=== PATIENT | male | born 1945 | race Caucasian/White ===

== ENCOUNTER 2017-01-28 13:36 | Inpatient (IN) ==
--- NOTE | 2017-01-28 15:02 | General Surgery Consult Note ---
Assessment and Plan - Time spent with patient Time spent with patient: Less than 30 minutes (1) Pancreatic cancer Status: Acute Assessment and plan: Impression: 1. Pancreatic cancer 2. Chemotherapy needing venous access 3. History of congestive heart failure 4. History of DVT Plan: We will go ahead and set patient up for a Mediport in the morning. Current Visit: No History of Present Illness Chief complaint: Cancer needing venous access for chemotherapy History of present illness: Mr. Tate is a 71 year old male white who is undergoing chemotherapy at this time I believe for pancreatic cancer. At this point he is looking pretty good but has poor venous access and needs a good Mediport in for additional chemotherapy. Patient has been on Xarelto but has not taken it since Saturday has been on Plavix and has not taken that since . We will go ahead and set him up to get a Mediport in tomorrow so that they can continue chemotherapy. Home Medications Medication Instructions Recorded Confirmed Type metFORMIN [Glucophage] 500 mg PO BID W/MEALS 06/27/16 11/25/16 History Polyethylene Glycol Powder 17 gm PO DAILY PRN 07/07/16 11/25/16 History [Miralax] Ondansetron Tab [Zofran Tab] 8 mg PO Q6HR PRN 07/08/16 11/25/16 History fentaNYL 25 MCG/HR PATCH 1 patch TRANSDERM Q3DAY #10 patch 07/18/16 11/25/16 Rx [Duragesic 25 Patch] oxyCODONE IR [Roxicodone] 10 mg PO Q4H PRN #60 tablet 07/18/16 11/25/16 Rx Hydrocodone/Acetaminophen 1 each PO Q4-6H PRN 11/25/16 11/25/16 History [Hydrocodon-Acetaminoph 7.5-325] Magnesium Oxide 400 mg PO DAILY 11/25/16 11/25/16 History Albuterol/Ipratropium Neb [Duoneb] 3 ml RESP TX RT Q6H 30 Days 11/29/16 Rx Carvedilol [Coreg] 6.25 mg PO BID #60 tablet 11/29/16 Rx Clopidogrel [Plavix] 75 mg PO DAILY 30 Days 11/29/16 Rx Furosemide Tab [Lasix Tab] 40 mg PO BID #60 tablet 11/29/16 Rx Isosorbide Dinitrate [Isordil] 20 mg PO TID 30 Days 11/29/16 Rx Rivaroxaban [Xarelto] 15 mg PO DAILY 30 Days 11/29/16 Rx Allergies Allergy/AdvReac Type Severity Reaction Status Date / Time Iodinated Contrast Media - Allergy Unknown/Unable Verified 07/07/16 14:23 IV Dye to obtain latex Allergy RASH Verified 07/07/16 14:23 Penicillins Allergy Unknown/Unable Verified 07/07/16 14:23 to obtain lactose AdvReac Abdominal Verified 07/09/16 10:58 Pain Medical,Surgical,& Family Hx - Medical History Cardio: No history of: Cardiac Dysrhythmia Neurology: No history of: Brain Aneurysm, Seizures HEENT: History of: Ear Problem (Hearing Loss Both Ears-hearing aides), Eye Problem (cataracts), Dental Problems (Dentures) Endocrine: History of: Diabetes Mellitus (NIDDM) Respiratory: History of: COPD, Pneumonia (Pneum Vac Fall 2014), Respiratory Problems No history of: Lung Cancer (Being evaluated for small pulmonary nodules) Genitourinary: History of: Kidney Stones (45 years ago) No history of: Recurring Urinary Tract Infections Gastrointestinal: History of: Liver Problems (Multiple Liver Masses-06/28/16 Sched for Liver Bx RAD), Gastrointestinal Cancer (Being evaluated for Pancreatic CA-3cm mass near head of Pancreas), GI Problems (40# wt Loss in 4 months;RUQ Abd Pain) No history of: Esophageal Varices, Hematochezia, Hepatitis Other: History of: Cancer (Suspected Pancreatic Dr. Penn) No history of: Anesthesia Reactions - Surgical History Cardiac Surgeries: Patient Denies: Cardiac Catheterization, Cardiac Surgery, Carotid Endarterectomy Neurologic Surgeries: Patient denies: Brain Aneurysm HEENT Surgeries: Surgical HX of: Eye Surgery (Lens Implants Both Eyes) Patient denies: Carotid Endarterectomy Orthopedic Surgeries: Surgical HX of;: Spinal Surgery ([facility] 2008 Disc Repair) - Social History Smoking Status: Unknown if ever smoked Frequency of Alcohol Use: None Type of Drug Use: Unknown 12 point system: reviewed and no additional remarkable complaints except as stated Exam - Constitutional Vitals: Period Temp Pulse Resp BP Sys/Cobb Pulse Ox Last 24 Hr 97.8 F 107 20 215/96 94 General appearance: no acute distress - Head Head exam: Present: normal inspection - ENT ENT exam: Present: normal exam - Neck Neck exam: Present: normal inspection - Respiratory Respiratory exam: Present: clear to auscultation bilaterally, rales - Cardiovascular Cardiovascular exam: Present: RRR - GI/Abdominal GI/Abdominal exam: Present: hypoactive bowel sounds, soft. Absent: tenderness - Extremities Exam Extremities exam: Present: normal inspection - Neurological Exam Neurological exam: Present: alert, oriented X3, CN II-XII intact - Skin Skin exam: Present: normal color, warm, dry
[2017-01-28] MEDS ORDERED: PROCHLORPERAZINE 10 MG TABLET PO PRN (15:07)
[2017-01-28] MEDS ORDERED: POLYETHYLENE GLYCOL POWDER 17 GM PACK PO PRN (15:07)
[2017-01-28] MEDS ORDERED: ONDANSETRON 4 MG TABLET PO PRN (15:07)
--- NOTE | 2017-01-28 15:25 | EKG Report ---
Stationary ECG Study [facility] Test Date: 01/28/2017 3:23:32 PM Pat Name: BRYANT JACOBSEN Department: Room: 434 Gender: M Mucker [place]: : 1945 Requested by: Pop Joyner Order Number: [id number] Natalya MD: GISELA DIAMOND Intervals [place] Rate: 103 P: 57 MA: 128 QRS: 77 QRSD: 93 T: 2 QT: 336 QTc: 396 Interpretive Statements SINUS TACHYCARDIA MINIMAL ST DEPRESSION ABNORMAL RHYTHM ECG Electronically Signed On 01-29-17 12:21:21 CDT by GISELA DIAMOND [email or web address]
--- NOTE | 2017-01-28 15:39 | Cardiology Consult Note ---
Светлана Grimes April RN, am scribing for, and in the presence of, Guicho Wallace MD 15:39. Assessment and Plan - Time spent with patient Time spent with patient: Greater than 30 minutes (Due to assessment, planning, documentation, and medication review) (1) Congestive heart failure Status: Acute Assessment and plan: 01/28: We will begin evaluation for recurring congestive heart failure. We need to consider this as right heart failure primarily and be certain that we are not dealing with low intravascular volumes which we will make worse with intravenous diuresis. Will follow closely. Thank you for allowing us to see him in the hospital. Current Visit: Yes (2) COPD (chronic obstructive pulmonary disease) Status: Chronic Current Visit: Yes (3) DVT (deep venous thrombosis) Status: Chronic Current Visit: No (4) Diabetes Status: Chronic Current Visit: Yes (5) NSTEMI (non-ST elevated myocardial infarction) Status: Chronic Current Visit: No (6) Pancreatic cancer Status: Acute Current Visit: Yes History of Present Illness - Data of Consult Patient: known to practice within the last 3 years Consult date: 01/28/17 Requesting Physician: Dashawn Penn - Consult Narrative Reason for consult: CHF History of present illness: Mr. Tate is a 71 year old male who is routinely followed by Dr. Wallace with a history of non-ST elevation myocardial infarction, TIAs, pancreatic and liver cancer, NIDDM, COPD, and DVT (on Xarelto). Echo done in November of this year with ejection fraction of 50-55%. Dr. Penn follows him for his cancer and he is currently getting chemotherapy treatments. Surgical history includes back, hernia, bilateral cataracts, and tonsillectomy. Family history includes father with heart disease, hypertension, and cancer and mother with heart disease and hypertension. He does not currently smoke, he states he quit smoking about 15 years ago. He was seen in Dr. Penn's office today for chemotherapy and was sent to the hospital in anticipation of poor access. He has been holding his Plavix since of last week and his Xarelto since Saturday. He also tells me that he has been short of breath with edema since November, but that it is gotten much worse over the last several weeks. He does report having orthopnea. He does report having chest pain that is a pressure in the center of his chest that comes on when he gets extremely short of breath. It goes away when his breathing improves. He says the last episode he had of this was on Saturday. Currently he is seen resting in bed in no acute distress is at bedside. He states his breathing is pretty good right now, oxygen is in use via nasal biprong. O2 sat is 94%. He denies chest pain, palpitations, or dizziness. His heart rate seems regular to auscultation, but does seem tachycardic. His pulse rate on admission was 107, blood pressure was 215/96. Labs are pending at this time. I have discussed in detail the particulars of this case and I have examined the patient and reviewed the patient's chart both current and old. I was directly involved in the patient's evaluation and management and I completely agree with Adelaide Sotomayor RN regarding this patient's evaluation and treatment plan. This patient is well known to me with a history of DVT as well as a acute coronary syndrome and was started on Xarelto and Plavix which have been held for his Mediport to be placed in the morning. He complains of severe exertional fatigue and dyspnea at very short distances. We will plan on pushing his diuresis, and will check a BNP. We will also review a 2D echocardiogram to be certain there is no pericardial effusion or something else it is impeding right heart filling. It could easily be that the patient has nutritional issues or right-sided issues that are making him edematous without significant increase in filling pressures. We need to watch for hypotension on intravenous Lasix. CC: Dashawn Penn MD - Home Medications and Allergies Home Medications: Home Medications Medication Instructions Recorded Confirmed Type metFORMIN [Glucophage] 500 mg PO BID W/MEALS 06/27/16 01/28/17 History Polyethylene Glycol Powder 17 gm PO DAILY PRN 07/07/16 01/28/17 History [Miralax] Ondansetron Tab [Zofran Tab] 8 mg PO Q6HR PRN 07/08/16 01/28/17 History fentaNYL 25 MCG/HR PATCH 1 patch TRANSDERM Q3DAY #10 patch 07/18/16 01/28/17 Rx [Duragesic 25 Patch] Hydrocodone/Acetaminophen 1 each PO Q4-6H PRN 11/25/16 01/28/17 History [Hydrocodon-Acetaminoph 7.5-325] Magnesium Oxide 400 mg PO DAILY 11/25/16 01/28/17 History Albuterol/Ipratropium Neb [Duoneb] 3 ml RESP TX RT Q6H 30 Days 11/29/16 Rx Clopidogrel [Plavix] 75 mg PO DAILY 30 Days 11/29/16 01/28/17 Rx Furosemide Tab [Lasix Tab] 40 mg PO BID #60 tablet 11/29/16 01/28/17 Rx Isosorbide Dinitrate [Isordil] 20 mg PO TID 30 Days 11/29/16 01/28/17 Rx Rivaroxaban [Xarelto] 15 mg PO DAILY 30 Days 11/29/16 01/28/17 Rx Carvedilol [Coreg] 3.125 mg PO BID 01/28/17 01/28/17 History Cyanocobalamin (Vitamin B-12) 1,000 mcg PO DAILY 01/28/17 01/28/17 History [Vitamin B-12] Docusate Sodium Cap [Colace Cap] 100 mg PO DAILY 01/28/17 01/28/17 History Levothyroxine Tab [Synthroid Tab] 75 mcg PO DAILY@0700 01/28/17 01/28/17 History Megestrol Liquid [Megace Liquid] 400 mg PO DAILY 01/28/17 01/28/17 History Potassium Chloride [Klor-Con] 20 meq PO DAILY 01/28/17 01/28/17 History Prochlorperazine Tab [Compazine 10 mg PO Q4-6H PRN 01/28/17 01/28/17 History Tab] metOLazone [Metolazone] 2.5 mg PO DAILY 01/28/17 01/28/17 History oxyCODONE IR [Roxicodone] 1 - 2 tablet PO Q4H PRN 01/28/17 01/28/17 History Allergies/Adverse Reactions: Allergies Allergy/AdvReac Type Severity Reaction Status Date / Time Iodinated Contrast Media - Allergy Unknown/Unable Verified 07/07/16 14:23 IV Dye to obtain latex Allergy RASH Verified 07/07/16 14:23 Penicillins Allergy Unknown/Unable Verified 07/07/16 14:23 to obtain lactose AdvReac Abdominal Verified 07/09/16 10:58 Pain - Constitutional Constitutional: Present: as per HPI - EENT Eyes: Present: requires corrective lense. Absent: blurry vision Ears: Present: decreased hearing, other (Hearing aid). Absent: tinnitus Nose, mouth and throat: Absent: epistaxis, headache(s), neck pain - Cardiovascular Cardiovascular: Present: chest pain with activity (When severely short of breath ), dyspnea, dyspnea on exertion, edema, orthopnea. Absent: diaphoresis, radiating jaw, neck or arm pain, lightheadedness, palpitations - Respiratory Respiratory: Present: dyspnea, dyspnea on exertion. Absent: cough, hemoptysis, wheezing - Gastrointestinal Gastrointestinal: Absent: abdominal pain, constipation, diarrhea, hematemesis, hematochezia, melena, nausea, vomiting - Genitourinary Genitourinary: Absent: flank pain, hematuria - Musculoskeletal Musculoskeletal: Present: muscle weakness. Absent: limited range of motion - Neurological Neurological: Present: abnormal gait. Absent: abnormal speech, confusion, frequent falls, syncope - Psychiatric Psychiatric: Absent: anxiety, confusion, depression - Endocrine Endocrine: Present: fatigue Medical,Surgical,& Family Hx - Medical History Cardio: History of: MD (Non-ST elevation MD) Neurology: History of: TIA HEENT: History of: Ear Problem (Hearing Loss Both Ears-hearing aides), Eye Problem (cataracts), Dental Problems (Dentures) Endocrine: History of: Diabetes Mellitus (NIDDM) Respiratory: History of: COPD, Pneumonia (Pneum Vac Fall 2015) Genitourinary: History of: Kidney Stones (45 years ago) Gastrointestinal: History of: Liver Problems (Multiple Liver Masses), Gastrointestinal Cancer (Being evaluated for Pancreatic CA-3cm mass near head of Pancreas) Other: History of: Cancer (Pancreatic and liver) - Surgical History HEENT Surgeries: Surgical HX of: Eye Surgery (Bilateral cataracts), Tonsilectomy & Adenoidectomy Abdominal Surgeries: Surgical HX of: Hernia Repair Orthopedic Surgeries: Surgical HX of;: Spinal Surgery ([facility] 2008 Disc Repair) - Family History Family History: Reports;: Family Cancer (Father), Family Heart Disease (Mother and father), Family Hypertension (Mother and father) - Social History Smoking Status: Former smoker (States he quit about 15 years ago) Have you smoked in the last 12 months: No Frequency of Alcohol Use: None Type of Drug Use: None, Unknown Marital Status: Lives With:: Spouse Functional capacity: uses cane/walker Physical Examination Vital Signs Temp Pulse Resp BP Pulse Ox 97.8 F 107 H 20 215/96 94 L 01/28/17 14:24 01/28/17 14:24 01/28/17 14:24 01/28/17 14:24 01/28/17 14:24 General: Present: No Apparent Distress HEENT: Present: PERRL, Mucus Membranes Moist Neck: Present: Supple Neck, Midline Trachea, No JVD/HJR Cardiac: Present: Reg Rate and Rhythm, Tachycardia Lungs: Present: Normal Breath Sounds, Oxygen (Via nasal biprong), No Wheeze, Rales, Rhonchi Neuro: Absent: Essential Tremor Abdomen: Present: Soft, Active Bowel Sounds, Non-Tender Skin: Present: Clear Musculoskeletal: Present: No Pain, Normal Range of Motion Gait: Present: Poor Gait Extremities: Present: No Edema (1+ edema to bilateral lower extremities), Normal Upper Extr. Pulses, Normal Lower Extr. Pulses. Absent: Normal Gait Rodrigo Grimes Wesley, MD, personally performed the services described in this documentation, ascribed by Adelaide Sotomayor RN in my presence, and it is both accurate and complete [id number] .
--- NOTE | 2017-01-28 16:22 | Ultrasound Report ---
History is lower extremity edema and history of prior DVT. Grayscale, spectral Doppler, and color flow analysis performed and interpreted No evidence of echogenic noncompressible thrombus seen in the right common femoral, superficial femoral, saphenous, or popliteal veins The left common femoral and saphenous veins are patent There is occlusion of the mid to distal SFV and popliteal veins on the left in an area of prior DVT on the study of 07/14/2016 Impression: 1. Occlusion of the left SFV in an area of prior DVT. This could be chronic or related to residual or recurrent thrombus. Close clinical correlation requested PROCEDURE INTERPRETED AT [facility] DEPARTMENT OF RADIOLOGY Final Report Signed by: Dr. Joanie Micthell
[2017-01-28] MEDS: FUROSEMIDE 20 MG TABLET PO SCH (17:02)
[2017-01-28 17:03] LABS: Basophils % 0.2 % (0.0-0.8); Hematocrit 31.9 VOL% (42.0-52.0); Hemoglobin 10.2 GM/DL (14.0-18.0); Immature Granulocytes % 2.5 %; Immature Granulocytes Absolute 0.14 #; Lymphocytes # 0.4 10*3/uL (1.4-4.0); Mean Corpuscular Hemoglobin 32 PG (27-34); Mean Platelet Volume 9.6 FL (9.6-12.0); Monocytes # 0.3 10*3/uL (0.11-0.8); Monocytes % 5.1 % (1.7-12.7); Neutrophils # 4.6 10*3/uL (1.4-7.4); Neutrophils % 84.2 % (38.7-73.9); Platelet Count 297 T/CUMM (130-400); Red Blood Count 3.19 MC/CUMM (3.8-5.5); Red Cell Distribution Width 22.8 % (9.3-17.3); White Blood Count 5.5 T/CUMM (4-12)
[2017-01-28 17:15] LABS: INR 1.2; PT Patient Result 12.8 SECS; Partial Thromboplastin Time 32.8 SECS (0-40)
[2017-01-28] MEDS: ISOSORBIDE DINITRATE 20 MG TABLET PO SCH (17:23)
[2017-01-28] MEDS: CARVEDILOL 3.125 MG TABLET PO SCH (17:23)
[2017-01-28] MEDS: FUROSEMIDE 40 MG/4 ML VIAL IV SCH (17:24)
[2017-01-28 17:28] LABS: Albumin 2.4 G/DL (3.4-5.0); Bilirubin,Total 0.7 MG/DL (0.2-1.0); Calcium 8.1 MG/DL (8.5-10.1); Osmolality,Calculated 297.1 MOS/KG (273-304); Potassium 4.6 MMOL/L (3.5-5.1); Total Protein 5.4 G/DL (6.4-8.3)
[2017-01-28] MEDS: FLUOROURACIL IV SCH (18:02)
[2017-01-28] MEDS: SODIUM CHLORIDE 0.9% IV SCH (18:02)
--- NOTE | 2017-01-28 18:04 | XRay Report ---
Chest, 2 views History is preop Mediport placement to a cancer history Comparison 11/26/2016 The heart is mildly enlarged. Hilar contours grossly unchanged There are minimal curly B lines in the lung bases however prior diffuse pulmonary edema is markedly improved No consolidated infiltrate seen There is blunting of both costophrenic angles No pneumothorax seen Impression: Suspected minimal interstitial edema PROCEDURE INTERPRETED AT [facility] DEPARTMENT OF RADIOLOGY Final Report Signed by: Dr. Joanie Mitchell
[2017-01-28] MEDS: ALBUTEROL/IPRATROPIUM 3 ML NEB RESP TX SCH (18:45)
[2017-01-29] MEDS: ALBUTEROL/IPRATROPIUM 3 ML NEB RESP TX SCH ×4 (00:10→19:20)
[2017-01-29] MEDS: ISOSORBIDE DINITRATE 20 MG TABLET PO SCH ×4 (00:34→21:01)
[2017-01-29 04:50] LABS: Calcium 8.2 MG/DL (8.5-10.1); Osmolality,Calculated 289.4 MOS/KG (273-304); Potassium 4.2 MMOL/L (3.5-5.1)
[2017-01-29] MEDS: LEVOTHYROXINE 75 MCG TABLET PO SCH (06:36)
--- NOTE | 2017-01-29 08:58 | Oncology History&Physical ---
Assessment and Plan (1) Pancreatic cancer Status: Acute Assessment and plan: Continuing infusional fluorouracil chemotherapy which should complete 46 hour duration sometime tomorrow. Mediport placement today with plans to resume Xarelto and Plavix approximately 10 hours post surgery. Cautious diuresis. Current Visit: Yes History of Present Illness Chief complaint: Pancreatic cancer History of present illness: Mr. Tate is a 71 year old male Diagnosed around June 2016 with pancreatic cancer with liver metastasis. The patient has shown response to first-line therapy with gemcitabine and Abraxane. He has COPD clinically though he is not a current smoker. He also had a cardiac event a few months ago with elevated troponin which necessitated the addition of Plavix and nitrates. He also has right heart dysfunction from review of cardiology consultation. Over the last several weeks he has required escalating doses of furosemide and attempts to maintain ideal body weight. He is O2 dependent and does have a history of left leg deep vein thrombosis. He is on Xarelto in addition to Plavix. Ultrasound reviewed from yesterday in my opinion likely shows continued thrombus from prior event He is now started on second line FOLFOX chemotherapy due to rising tumor marker. He is admitted for chemo infusion as well as Mediport placement. His anticoagulation has been held. He was also seen yesterday by cardiology primarily for increasing dyspnea on exertion and peripheral edema Home Medications Medication Instructions Recorded Confirmed Type metFORMIN [Glucophage] 500 mg PO BID W/MEALS 06/27/16 01/28/17 History Polyethylene Glycol Powder 17 gm PO DAILY PRN 07/07/16 01/28/17 History [Miralax] Ondansetron Tab [Zofran Tab] 8 mg PO Q6HR PRN 07/08/16 01/28/17 History fentaNYL 25 MCG/HR PATCH 1 patch TRANSDERM Q3DAY #10 patch 07/18/16 01/28/17 Rx [Duragesic 25 Patch] Hydrocodone/Acetaminophen 1 each PO Q4-6H PRN 11/25/16 01/28/17 History [Hydrocodon-Acetaminoph 7.5-325] Magnesium Oxide 400 mg PO DAILY 11/25/16 01/28/17 History Albuterol/Ipratropium Neb [Duoneb] 3 ml RESP TX RT Q6H 30 Days 11/29/16 Rx Clopidogrel [Plavix] 75 mg PO DAILY 30 Days 11/29/16 01/28/17 Rx Furosemide Tab [Lasix Tab] 40 mg PO BID #60 tablet 11/29/16 01/28/17 Rx Isosorbide Dinitrate [Isordil] 20 mg PO TID 30 Days 11/29/16 01/28/17 Rx Rivaroxaban [Xarelto] 15 mg PO DAILY 30 Days 11/29/16 01/28/17 Rx Carvedilol [Coreg] 3.125 mg PO BID 01/28/17 01/28/17 History Cyanocobalamin (Vitamin B-12) 1,000 mcg PO DAILY 01/28/17 01/28/17 History [Vitamin B-12] Docusate Sodium Cap [Colace Cap] 100 mg PO DAILY 01/28/17 01/28/17 History Levothyroxine Tab [Synthroid Tab] 75 mcg PO DAILY@0700 01/28/17 01/28/17 History Megestrol Liquid [Megace Liquid] 400 mg PO DAILY 01/28/17 01/28/17 History Potassium Chloride [Klor-Con] 20 meq PO DAILY 01/28/17 01/28/17 History Prochlorperazine Tab [Compazine 10 mg PO Q4-6H PRN 01/28/17 01/28/17 History Tab] metOLazone [Metolazone] 2.5 mg PO DAILY 01/28/17 01/28/17 History oxyCODONE IR [Roxicodone] 1 - 2 tablet PO Q4H PRN 01/28/17 01/28/17 History Allergies Allergy/AdvReac Type Severity Reaction Status Date / Time Iodinated Contrast Media - Allergy Unknown/Unable Verified 07/07/16 14:23 IV Dye to obtain latex Allergy RASH Verified 07/07/16 14:23 Penicillins Allergy Unknown/Unable Verified 07/07/16 14:23 to obtain lactose AdvReac Abdominal Verified 07/09/16 10:58 Pain Medical,Surgical,& Family Hx - Medical History Cardio: History of: ID (Non-ST elevation ID) No history of: Cardiac Dysrhythmia Neurology: History of: TIA No history of: Brain Aneurysm, Seizures HEENT: History of: Ear Problem (Hearing Loss Both Ears-hearing aides), Eye Problem (cataracts), Dental Problems (Dentures) Endocrine: History of: Diabetes Mellitus (NIDDM) Respiratory: History of: COPD, Pneumonia (Pneum Vac Fall 2015), Respiratory Problems No history of: Lung Cancer (Being evaluated for small pulmonary nodules) Genitourinary: History of: Kidney Stones (45 years ago) No history of: Recurring Urinary Tract Infections Gastrointestinal: History of: Liver Problems (Multiple Liver Masses), Gastrointestinal Cancer (Being evaluated for Pancreatic CA-3cm mass near head of Pancreas), GI Problems (40# wt Loss in 4 months;RUQ Abd Pain) No history of: Esophageal Varices, Hematochezia, Hepatitis Other: History of: Cancer (Pancreatic and liver) No history of: Anesthesia Reactions - Surgical History Cardiac Surgeries: Patient Denies: Cardiac Catheterization, Cardiac Surgery, Carotid Endarterectomy Neurologic Surgeries: Patient denies: Brain Aneurysm HEENT Surgeries: Surgical HX of: Eye Surgery (Bilateral cataracts), Tonsilectomy & Adenoidectomy Patient denies: Carotid Endarterectomy Abdominal Surgeries: Surgical HX of: Hernia Repair Orthopedic Surgeries: Surgical HX of;: Spinal Surgery ([facility] 2007 Disc Repair) - Family History Family History: Reports;: Family Cancer (Father), Family Heart Disease (Mother and father), Family Hypertension (Mother and father) - Social History Smoking Status: Former smoker (States he quit about 15 years ago) Frequency of Alcohol Use: None Type of Drug Use: None, Unknown - Constitutional Constitutional: Present: fatigue, malaise, weight gain. Absent: fever(s), night sweats - EENT Ears: Present: decreased hearing. Absent: ear discharge, ear pain Nose, mouth and throat: Absent: neck mass, neck pain, odynophagia, sore throat - Cardiovascular Cardiovascular ROS IM: Present: edema, orthopnea. Absent: palpitations - Respiratory Respiratory: Absent: cough - Gastrointestinal Gastrointestinal: Absent: hematemesis, hematochezia - Genitourinary Genitourinary ROS male: Present: difficulty urinating, dysuria - Musculoskeletal Musculoskeletal ROS: Absent: back pain - Psychiatric Psychiatric General: Absent: panic attacks, suicidal ideation - Hematologic/Lymphatic Hematologic/Lymphatic: Absent: lymphadenopathy Exam - Constitutional Vitals: Period Temp Pulse Resp BP Sys/Cobb Pulse Ox Last 24 Hr 97.6 F-97.9 F 84-109 16-20 156-215/72-97 94-98 General appearance: no acute distress, no severe distress, no disheveled - Head Head Exam: Present: normocephalic, atraumatic - Eye Eye Exam: Present: EOMI. Absent: conjunctival injection, periorbital swelling, scleral icterus Pupils: Present: PERRL - ENT ENT exam: Present: normal external ear exam - Neck Neck exam: Present: normal inspection. Absent: lymphadenopathy, tenderness, thyromegaly - Respiratory Respiratory exam: Present: CTAB. Absent: accessory muscle use - Cardiovascular Cardiovascular exam: Present: RRR - GI/Abdominal GI/Abdominal exam: Absent: ascites, firm, guarding - Extremities Exam Extremities exam: Present: normal capillary refill, edema - Neurological Exam Neurological exam: Present: alert, oriented X3 - Psychiatric Psychiatric exam: Present: normal affect, normal mood - Skin Skin exam: Present: warm, dry Results - Labs CBC & BMP: 01/28/17 16:52 01/29/17 04:05 Quality Measures - VTE Contraindication to Pharmacological VTE Prophylaxis: High Risk of Bleeding
[2017-01-29 11:34] LABS: Apearance,Urine CLEAR (Clear); Bilirubin,Urine Negative (Negative); Blood, Urine Moderate mg/dL (Negative); Glucose,Urine (UA) Negative (Negative); Ketones,Urine Negative (Negative); Nitrite,Urine Negative (Negative); Protein,Urine 100 MG/DL; RBC,Urine 26 /HPF (0-4); Urine Color Yellow (Yellow); Urine Urobilinogen < 2.0 EU/DL (0.2-1.0); WBC,Urine 1 /HPF (0-6)
[2017-01-29] MEDS: CARVEDILOL 3.125 MG TABLET PO SCH ×2 (12:24→21:01)
[2017-01-29] MEDS ORDERED: CLINDAMYCIN INJ 900 MG in PREMIX 1 EACH IV ONE (12:30)
[2017-01-29] MEDS ORDERED: TISSUE ADHESIVE 1 EACH APPLICATOR TOP ONE (12:54)
[2017-01-29] MEDS ORDERED: BUPIVACAINE MPF 0.25% /EPI 30 ML VIAL ONE (12:54)
[2017-01-29] MEDS ORDERED: ceFAZolin 1,000 MG VIAL ONE (12:54)
[2017-01-29] MEDS ORDERED: LIDOCAINE 2% 5 ML VIAL ONE (13:04)
[2017-01-29] MEDS ORDERED: ETOMIDATE 20 MG/10 ML VIAL IV ONE (13:04)
--- NOTE | 2017-01-29 13:14 | ECHO Report ---
Shayne Tate Exam Date: 01/29/2017 09:07 Referring Physician: Technologist: Jazmine Villeda Age: 71 Ht (in): 68 Wt (lb): 197 Gender: M Exam Location: [facility] Echo Indications: CHF, COPD, DVT, NIDDM, NSTEMI, pancreatic CA, orthopnea, SOB, edema BP: 186 / 84 HR: 87 Rhythm: NSR Technical Quality: Good IMPRESSIONS Normal left ventricular cavity size. Mild concentric left ventricular hypertrophy. Left ventricular ejection fraction is estimated at 50-55 %. Normal right ventricular size. Normal right atrial size. Normal left atrial size. Mild mitral valve sclerosis. Mild mitral valve regurgitation. Mild aortic valve sclerosis. Morphologically normal tricuspid valve. Moderate tricuspid valve regurgitation. Tricuspid regurgitation velocities suggest a PAP of 44.6 mmHg + RAP. Morphologically normal pulmonic valve. No pericardial effusion. Normal size aortic root and proximal ascending aorta. MEASUREMENTS (Male / Female) Normal Values 2D ECHO LV Diastolic Diameter PLAX 3.6 cm 4.2 - 5.9 / 3.9 - 5.3 cm LV Systolic Diameter PLAX 2.5 cm LV Fractional Shortening PLAX 29.9 % IVS Diastolic Thickness 1.4 cm 0.6 - 1.0 / 0.6 - 0.9 cm LVPW Diastolic Thickness 1.6 cm 0.6 - 1.0 / 0.6 - 0.9 cm RV Internal Dim ED PLAX 2.4 cm Aortic Root Diameter 2.4 cm LA Systolic Diameter LX 3.9 cm 3.0 - 4.0 / 2.7 - 3.8 cm DOPPLER TR Peak Velocity 334.0 cm/s TR Peak Gradient 44.6 mmHg FINDINGS Left Ventricle Normal left ventricular cavity size. Mild concentric left ventricular hypertrophy.left ventricular ejection fraction is estimated at 50-55 %. Right Ventricle Normal right ventricular size. Right Atrium Normal right atrial size. Left Atrium Normal left atrial size. Mitral Valve Mild mitral valve sclerosis. Mild mitral valve regurgitation. Aortic Valve Mild aortic valve sclerosis. Tricuspid Valve Morphologically normal tricuspid valve. Moderate tricuspid valve regurgitation. Tricuspid regurgitation velocities suggest a PAP of 44.6 mmHg + RAP. Pulmonic Valve Morphologically normal pulmonic valve. Pericardium No pericardial effusion. Aorta Normal size aortic root and proximal ascending aorta. Guicho Wallace MD (Electronically Signed) Final Date: 29 January 2017 13:14
[2017-01-29] MEDS ORDERED: ACETAMINOPHEN 325 MG TABLET PO PRN (14:24)
--- NOTE | 2017-01-29 14:27 | Cardiology Progress Note ---
I, Adelaide Sotomayor RN, am scribing for, and in the presence of, Guicho Wallace MD 14:25. Assessment and Plan (1) Congestive heart failure Status: Acute Assessment and plan: This is heart failure with preserved ejection fraction. I suspect that this is multifactorial related to the patient's multiple comorbidities. We will continue diuresis and attempts at offloading. He does need to be resumed on his Xarelto as well as his Plavix when is feasible. Current Visit: Yes (2) COPD (chronic obstructive pulmonary disease) Status: Chronic Current Visit: Yes (3) DVT (deep venous thrombosis) Status: Chronic Assessment and plan: Repeat venous ultrasound did show some occlusion of prior DVT site which likely is chronic. We will continue Xarelto regardless. Current Visit: No (4) Diabetes Status: Chronic Current Visit: Yes (5) NSTEMI (non-ST elevated myocardial infarction) Status: Chronic Current Visit: No (6) Pancreatic cancer Status: Acute Current Visit: Yes Cardiology - PN: Subj Interval history: Mr. Tate is seen resting in bed in no acute distress with at bedside. He is scheduled for Mediport placement today. He denies chest pain, palpitations, or dizziness. Oxygen is in use via nasal biprong, he tells me he is breathing about as well as he normally does. O2 sat 96%. Heart rates were in the 80s during the night. BNP checked this morning was 706. Venous Doppler shows occlusion of the left SFV in the area of prior DVT, this could be chronic and related to previous DVT. Patient is to remain on Xarelto. Echocardiography demonstrates normal LV function with normal right sided dimensions and I feel that a significant amount of his edema is related to peripheral issues including his history of DVT. He is overall currently stable and has diuresed without significant hypotension and we will continue this. Nutrition may be part of the etiology as well. He has BNP elevations might well be multifactorial as well. I have discussed in detail the particulars of this case and I have examined the patient and reviewed the patient's chart both current and old. I was directly involved in the patient's evaluation and management and I completely agree with Adelaide Sotomayor RN regarding this patient's evaluation and treatment plan. Exam (Progress Note) - Constitutional Vitals: Period Temp Pulse Resp BP Sys/Cobb Pulse Ox Last 24 Hr 97.6 F-97.9 F 84-109 16-20 156-215/72-97 94-98 General appearance: no acute distress - Head Head exam: Absent: abrasion, hematoma - Eye Eye exam: Absent: periorbital swelling, laceration to eyelids - Neck Neck exam: Absent: tenderness - Respiratory Respiratory exam: Present: clear to auscultation bilaterally, other (Oxygen via nasal biprong). Absent: accessory muscle use, chest wall tenderness - Cardiovascular Cardiovascular exam: Present: regular rate and rhythm - GI/Abdominal GI/Abdominal exam: Present: hypoactive bowel sounds, soft. Absent: tenderness - Extremities Exam Extremities exam: Present: edema (1+ bilateral lower extremities) - Neurological Exam Neurological exam: Present: alert, oriented X3 - Psychiatric Psychiatric exam: Present: normal affect, normal mood - Skin Skin exam: Present: warm, dry Result/EKG - Labs CBC & BMP: 01/28/17 16:52 01/29/17 04:05 Lab Results: I have reviewed the past 24 hour labs Labs: Laboratory Results - last 24 hr 01/28/17 01/28/17 01/28/17 16:52 16:52 16:52 WBC 5.5 RBC 3.19 L Hgb 10.2 L Hct 31.9 L MCV 100.0 MCH 32 MCHC 32.0 RDW 22.8 H Plt Count 297 MPV 9.6 Neut % (Auto) 84.2 H Lymph % (Auto) 8.0 L Pender % (Auto) 5.1 Eos % (Auto) 0.0 Baso % (Auto) 0.2 Neut # (Auto) 4.6 Lymph # (Auto) 0.4 L P[place] # (Auto) 0.3 Eos # (Auto) 0.0 Baso # (Auto) 0.0 Immature Gran % 2.5 Nucleated RBC % 0.0 Immature Gran # 0.14 Nucleated RBCs # 0.00 INR PT Patient/Control Mix Circ Anticoag PTT Sodium 142 Potassium 4.6 Chloride 101 Carbon Dioxide 28 Anion Gap 17.6 H BUN 39 H Creatinine 2.00 H GFR Calculation 38 BUN/Creatinine Ratio 19.00 Glucose 208 H Calculated Osmolality 297.1 Uric Acid Calcium 8.1 L Magnesium Total Bilirubin 0.70 AST 42 H ALT 21 Alkaline Phosphatase 110 Lactate Dehydrogenase 455 H B-Natriuretic Peptide Total Protein 5.4 L Albumin 2.4 L Globulin 3.0 Albumin/Globulin Ratio 0.8 L 01/28/17 01/28/17 01/28/17 16:52 16:52 16:52 WBC RBC Hgb Hct MCV MCH MCHC RDW Plt Count MPV Neut % (Auto) Lymph % (Auto) Pender % (Auto) Eos % (Auto) Baso % (Auto) Neut # (Auto) Lymph # (Auto) Pender # (Auto) Eos # (Auto) Baso # (Auto) Immature Gran % Nucleated RBC % Immature Gran # Nucleated RBCs # INR 1.2 PT Patient/Control Mix 12.8 D Circ Anticoag PTT 32.8 Sodium Potassium Chloride Carbon Dioxide Anion Gap BUN Creatinine GFR Calculation BUN/Creatinine Ratio Glucose Calculated Osmolality Uric Acid 10.2 H Calcium Magnesium 1.9 Total Bilirubin AST ALT Alkaline Phosphatase Lactate Dehydrogenase B-Natriuretic Peptide Total Protein Albumin Globulin Albumin/Globulin Ratio 01/29/17 01/29/17 04:05 04:05 WBC RBC Hgb Hct MCV MCH MCHC RDW Plt Count MPV Neut % (Auto) Lymph % (Auto) Pender % (Auto) Eos % (Auto) Baso % (Auto) Neut # (Auto) Lymph # (Auto) Pender # (Auto) Eos # (Auto) Baso # (Auto) Immature Gran % Nucleated RBC % Immature Gran # Nucleated RBCs # INR PT Patient/Control Mix Circ Anticoag PTT Sodium 140 Potassium 4.2 Chloride 102 Carbon Dioxide 27 Anion Gap 15.2 H BUN 43 H Creatinine 1.80 H GFR Calculation 43 BUN/Creatinine Ratio 23.00 H Glucose 97 Calculated Osmolality 289.4 Uric Acid Calcium 8.2 L Magnesium Total Bilirubin AST ALT Alkaline Phosphatase Lactate Dehydrogenase B-Natriuretic Peptide 706 H Total Protein Albumin Globulin Albumin/Globulin Ratio - Diagnostic Findings Procedure: Ultrasound: report reviewed by me - EKG EKG results: interpreted by me EKG shows: sinus rhythm Quality Measures - VTE Contraindication to Pharmacological VTE Prophylaxis: High Risk of Bleeding Rodrigo Grimes Wesley, MD, personally performed the services described in this documentation, ascribed by Adelaide Sotomayor RN in my presence, and it is both accurate and complete [id number] .
--- NOTE | 2017-01-29 14:36 | Anesthesia ---
Anesthesia Post OP - Post Ansesthetic Evaluation Patient seen in post op: Yes Resp: within normal limits CV: within normal limits Mental: within normal limits Temp: within normal limits [id number]: within normal limits Nausea and Vomiting: within normal limits Pain: within normal limits
[2017-01-29] MEDS ORDERED: fentaNYL 100 MCG/2 ML VIAL ONE (14:39)
[2017-01-29] MEDS ORDERED: MIDAZOLAM 2 MG/2 ML VIAL ONE (14:40)
--- NOTE | 2017-01-29 14:40 | Operative Note ---
Date of procedure: 01/29/17 Pre-op diagnosis: Pancreatic cancer for chemotherapy Post-op diagnosis: same Procedure: Operative note: Preoperative diagnosis: Pancreatic cancer needing venous access chemotherapy Postoperative diagnosis: Same Procedure: Insertion of PowerPort left cephalic vein Surgeon Dr. Joyner Anesthesia was managed anesthetic care with local Brief history: 71-year-old white male with pancreatic cancer who needs venous access now for continued chemotherapy. He is also had a history of some cardiac disease as well as DVT and has been on Xarelto and Plavix at which point they have been stopped the appropriate amount of time for the surgery. Procedure: Patient in the supine position prepped and draped in a sterile fashion timeout and antibiotics completed approaches area of the left chest wall area the infraclavicular region of the left upper shoulder region. I infiltrated with local anesthetic there and then made an incision at the level of the deltopectoral groove. At that point I made an incision through the skin subtenons tissue carefully dissected dissected down to identify the pectoralis major muscle. There was a little artery going over the top of the S that I had to clip with clips and divided. As I carefully dissected into the deltopectoral groove identified the vein. I then isolated it proximally and tied it with a 2-0 Vicryl time. I then isolated it distally with a 2-0 Vicryl but did not tie this. Patient was then placed in Trendelenburg position at which point we made a small venotomy incision. I then carefully inserted the catheter to the vein and we brought the C arm up to place it in the right atrium superior vena caval area. Once it was in good position we aspirated and irrigated and aspirated and irrigated easily. At that point I tied the 2-0 Vicryl tie down the secured in the vein and placed another one distal to that to tie it down and secure it further. In place clips over the openings of the vein. With that completed then we then went ahead and created a pocket using blunt dissection inferior to the incision on top of the pectoralis major muscle. Once that was completed then we cut off the excess of the catheter and placed it onto the reservoir and put the locking device in position. We then aspirated and irrigated through the reservoir were then aspirated and irrigated easily. With that completed then I sutured the reservoir into the pocket with interrupted 2-0 Vicryl sutures and the distal part on either side to keep it from rotating. Once I was in good position there we then washed we brought the C arm back up after we washed with Ancef solution. We then injected a good position good placement and good smooth course. With that completed then we then closed the subtenons tissue running 4-0 Vicryl closed the skin running 4-0 Monocryl with Dermabond applied there. We went ahead and accessed aspirated and irrigated through the access device which has accessed irrigated easily.. With that in position then we put a dressing on took the patient recovery room. Estimated blood loss 10 cc Sponge count correct 2 Drains none Complications none Condition stable satisfactory Anesthesia: MAC, local (0.25% Marcaine with epinephrine mixed [id number] 1% Xylocaine plain) Surgeon / Physician: Pop Joyner Estimated blood loss: other (10 cc) Specimens: none sent Condition: stable Disposition: floor Results - Labs CBC & BMP: 01/28/17 16:52 01/29/17 04:05 Discharge Plan - Discharge Medications No Action metFORMIN [Glucophage] 500 mg PO BID W/MEALS Polyethylene Glycol Powder [Miralax] 17 gm PO DAILY PRN PRN Reason: Constipation Ondansetron Tab [Zofran Tab] 8 mg PO Q6HR PRN PRN Reason: Nausea/Vomiting fentaNYL 25 MCG/HR PATCH [Duragesic 25 Patch] 1 patch TRANSDERM Q3DAY #10 patch Hydrocodone/Acetaminophen [Hydrocodon-Acetaminoph 7.5-325] 1 each PO Q4-6H PRN PRN Reason: Pain Magnesium Oxide 400 mg PO DAILY Isosorbide Dinitrate [Isordil] 20 mg PO TID 30 Days Rivaroxaban [Xarelto] 15 mg PO DAILY 30 Days Cyanocobalamin (Vitamin B-12) [Vitamin B-12] 1,000 mcg PO DAILY Docusate Sodium Cap [Colace Cap] 100 mg PO DAILY oxyCODONE IR [Roxicodone] 1 - 2 tablet PO Q4H PRN PRN Reason: Pain Severe (8-10) Prochlorperazine Tab [Compazine Tab] 10 mg PO Q4-6H PRN PRN Reason: Nausea Carvedilol [Coreg] 3.125 mg PO BID Levothyroxine Tab [Synthroid Tab] 75 mcg PO DAILY@0700 Potassium Chloride [Klor-Con] 20 meq PO DAILY Albuterol/Ipratropium Neb [Duoneb] 3 ml RESP TX RT Q6H 30 Days Clopidogrel [Plavix] 75 mg PO DAILY 30 Days Furosemide Tab [Lasix Tab] 40 mg PO BID #60 tablet Megestrol Liquid [Megace Liquid] 400 mg PO DAILY metOLazone [Metolazone] 2.5 mg PO DAILY - Follow Up or Referral - Forms/Instructions
--- NOTE | 2017-01-29 14:56 | XRay Report ---
XR chest 1V portable Indication: Mediport placement. Chest one view: Comparison yesterday. There is a left-sided Mediport catheter now present. Tip is at the RA-SVC junction. Heart size is normal. Increased reticular opacification of both lung ardon noted diffusely with increased hazy obscuration of the lung bases. No pneumothorax shown. Impression: 1. New Mediport catheter. No pneumothorax. 2. Suspect mild fluid overload. PROCEDURE INTERPRETED AT [facility] DEPARTMENT OF RADIOLOGY Final Report Signed by: Dashawn Byrnes M.D.
[2017-01-29] MEDS: FUROSEMIDE 20 MG TABLET PO SCH ×2 (16:18→17:23)
[2017-01-29] MEDS: DOCUSATE SODIUM 100 MG CAPSULE PO SCH (16:18)
[2017-01-29] MEDS: MAGNESIUM OXIDE 400 MG TABLET PO SCH (16:18)
[2017-01-29] MEDS: CYANOCOBALAMIN 500 MCG TABLET PO SCH (16:19)
[2017-01-29] MEDS: POTASSIUM CHLORIDE 20 MEQ PACK PO SCH (16:19)
[2017-01-29] MEDS: metOLazone 2.5 MG TABLET PO SCH (16:19)
[2017-01-29] MEDS: MEGESTROL 400 MG/10 ML UDCUP PO SCH (16:19)
[2017-01-29] MEDS: DEXTROSE 5% NACL 0.45% 1,000 ML IV SCH (16:20)
[2017-01-29] MEDS: FUROSEMIDE 40 MG/4 ML VIAL IV SCH (17:23)
[2017-01-29] MEDS: CLINDAMYCIN INJ 900 MG in PREMIX 1 EACH IV SCH (21:01)
[2017-01-30] MEDS: ALBUTEROL/IPRATROPIUM 3 ML NEB RESP TX SCH ×4 (00:10→20:08)
[2017-01-30] MEDS: SODIUM CHLORIDE 0.9% IV SCH (01:01)
[2017-01-30] MEDS: FLUOROURACIL IV SCH (01:01)
[2017-01-30] MEDS: CLINDAMYCIN INJ 900 MG in PREMIX 1 EACH IV SCH (05:37)
[2017-01-30 06:14] LABS: Eosinophils # 0.1 10*3/uL (0.0-0.87); Eosinophils % 0.9 % (0.00-10.9); Immature Granulocytes % 0.8 %; Immature Granulocytes Absolute 0.06 #; Mean Corpuscular HGB Conc 32.3 GM/DL (32-36); Mean Corpuscular Hemoglobin 32 PG (27-34); Mean Corpuscular Volume 99.2 FL (87-102); Mean Platelet Volume 9.8 FL (9.6-12.0); Red Cell Distribution Width 22.8 % (9.3-17.3)
[2017-01-30] MEDS: LEVOTHYROXINE 75 MCG TABLET PO SCH (06:16)
[2017-01-30 06:20] LABS: Basophils % 0.3 % (0.0-0.8); Hematocrit 25.7 VOL% (42.0-52.0); Hemoglobin 8.3 GM/DL (14.0-18.0); Lymphocytes # 1.1 10*3/uL (1.4-4.0); Lymphocytes % 14.3 % (21.2-54.2); Monocytes # 1.3 10*3/uL (0.11-0.8); Monocytes % 16.7 % (1.7-12.7); Neutrophils # 5.1 10*3/uL (1.4-7.4); Platelet Count 307 T/CUMM (130-400); Red Blood Count 2.59 MC/CUMM (3.8-5.5); White Blood Count 7.6 T/CUMM (4-12)
[2017-01-30 06:44] LABS: Albumin 2.2 G/DL (3.4-5.0); Bilirubin,Total 0.7 MG/DL (0.2-1.0); Calcium 7.9 MG/DL (8.5-10.1); Magnesium 1.9 MG/DL (1.8-2.4); Osmolality,Calculated 291.1 MOS/KG (273-304); Potassium 4.3 MMOL/L (3.5-5.1); Total Protein 4.4 G/DL (6.4-8.3)
[2017-01-30 06:45] LABS: Eosinophils 1 % (0-10); Hypochromasia Slight; Lymphocytes 16 % (20-55); Macrocytosis 1+; Platelet Estimate Normal; Segmented Neutrophils 73 % (50-85); Total Cells Counted 100
[2017-01-30] MEDS: FUROSEMIDE 20 MG TABLET PO SCH (08:15)
[2017-01-30] MEDS: DEXTROSE 5% NACL 0.45% 1,000 ML IV SCH (08:15)
[2017-01-30] MEDS: CARVEDILOL 3.125 MG TABLET PO SCH ×2 (09:16→20:55)
[2017-01-30] MEDS: PANTOPRAZOLE 40 MG TABLET PO SCH (09:16)
[2017-01-30] MEDS: metOLazone 2.5 MG TABLET PO SCH (09:16)
[2017-01-30] MEDS: MAGNESIUM OXIDE 400 MG TABLET PO SCH (09:17)
[2017-01-30] MEDS: ISOSORBIDE DINITRATE 20 MG TABLET PO SCH ×3 (09:17→20:55)
[2017-01-30] MEDS: CYANOCOBALAMIN 500 MCG TABLET PO SCH (09:17)
[2017-01-30] MEDS: MEGESTROL 400 MG/10 ML UDCUP PO SCH (09:18)
[2017-01-30] MEDS: FUROSEMIDE 40 MG/4 ML VIAL IV SCH (09:19)
[2017-01-30] MEDS: DOCUSATE SODIUM 100 MG CAPSULE PO SCH (09:23)
[2017-01-30] MEDS: POTASSIUM CHLORIDE 20 MEQ PACK PO SCH (09:24)
[2017-01-30] MEDS: CLOPIDOGREL 75 MG TABLET PO SCH (09:28)
[2017-01-30] MEDS: RIVAROXABAN 15 MG TABLET PO SCH (09:28)
[2017-01-30] MEDS ORDERED: SODIUM CHLORIDE 0.9% 250 ML IV PRN (09:31)
--- NOTE | 2017-01-30 09:33 | Oncology Progress Note ---
Assessment and Plan (1) Pancreatic cancer Status: Acute Assessment and plan: Continuing infusional fluorouracil chemotherapy which should complete 46 hour duration sometime tomorrow. Mediport placement today with plans to resume Xarelto and Plavix approximately 10 hours post surgery. Cautious diuresis. Current Visit: Yes Oncology Subjective PN Interval history: Metastatic pancreatic cancer admitted for infusional fluorouracil which she is tolerating well with approximately 18 hours remaining out of a 46 hour order. Mediport placed yesterday uneventfully in the left upper chest. Hematocrit is lower today and I will transfuse red blood cells. I reviewed his echocardiogram that shows an intact ejection fraction. My only area of concern was some degree of pulmonary hypertension. He is in good spirits today and awake and alert. He does have an extra Tory wheeze over the right chest with known COPD and is receiving nebulized pulmonary medications. He remains on Lasix and metolazone with an acceptable and actually somewhat improved creatinine today. I anticipate discharge tomorrow. Dose escalation of Synthroid is made based on today's elevated TSH. Xarelto and Plavix plan to restart today Exam - Constitutional Vitals: Period Temp Pulse Resp BP Sys/Cobb Pulse Ox Last 24 Hr 97.6 F-99.2 F 74-96 15-21 127-189/60-105 92-100 Results - Labs CBC & BMP: 01/30/17 05:53 01/30/17 05:53 Quality Measures - VTE Contraindication to Pharmacological VTE Prophylaxis: High Risk of Bleeding
--- NOTE | 2017-01-30 10:59 | Cardiology Progress Note ---
Светлана Grimes April RN, am scribing for, and in the presence of, Guicho Wallace MD 10:59. Assessment and Plan (1) Congestive heart failure Status: Acute Assessment and plan: He appears to be well compensated currently. We will review a BMP in the morning. Current Visit: Yes (2) COPD (chronic obstructive pulmonary disease) Status: Chronic Current Visit: Yes (3) DVT (deep venous thrombosis) Status: Chronic Current Visit: No (4) Diabetes Status: Chronic Current Visit: Yes (5) NSTEMI (non-ST elevated myocardial infarction) Status: Chronic Current Visit: No (6) Pancreatic cancer Status: Acute Current Visit: Yes Cardiology - PN: Subj Interval history: Patient is seen sitting on side of the bed in no acute distress. Oxygen is in use via nasal biprong. He is tachypneic at this time, but he tells me he just walked down the julio and that his breathing was much improved before he walked. He denies chest pain, palpitations, or dizziness. Mediport was placed yesterday, noted to left chest. H&H today is 8.3 and 25.7, it appears blood product has been ordered for him. Xarelto and Plavix have been restarted. Patient is stable and actually feels a little better today. He is going to get some packed cells which should help significantly. He is very happy with his Mediport and is more functional. They have his weight is having dropped 9 kg which I think is highly unlikely. His outputs do not seem to match that. We will continue his current dose of Lasix and will continue following. I will check lab in the morning. Exam (Progress Note) - Constitutional Vitals: Period Temp Pulse Resp BP Sys/Cobb Pulse Ox Last 24 Hr 97.6 F-99.2 F 74-96 15-21 127-189/60-105 92-100 General appearance: normal weight, no acute distress - Head Head exam: Absent: abrasion, hematoma - Eye Eye exam: Absent: periorbital swelling, laceration to eyelids - Neck Neck exam: Absent: tenderness - Respiratory Respiratory exam: Present: clear to auscultation bilaterally, other (oxygen via nasal biprong). Absent: accessory muscle use, chest wall tenderness - Cardiovascular Cardiovascular exam: Present: regular rate and rhythm - GI/Abdominal GI/Abdominal exam: Present: normal bowel sounds, soft. Absent: distended, tenderness - Extremities Exam Extremities exam: Present: edema (1+ bilateral lower extremities) - Neurological Exam Neurological exam: Present: alert, oriented X3 - Psychiatric Psychiatric exam: Present: normal affect, normal mood - Skin Skin exam: Present: warm, dry Result/EKG - Labs CBC & BMP: 01/30/17 05:53 01/30/17 05:53 Lab Results: I have reviewed the past 24 hour labs Labs: Laboratory Results - last 24 hr 01/29/17 01/30/17 01/30/17 11:10 05:53 05:53 WBC 7.6 D RBC 2.59 L Hgb 8.3 L Hct 25.7 L MCV 99.2 MCH 32 MCHC 32.3 RDW 22.8 H Plt Count 307 MPV 9.8 Neut % (Auto) 67.0 Lymph % (Auto) 14.3 L [place] % (Auto) 16.7 H Eos % (Auto) 0.9 Baso % (Auto) 0.3 Neut # (Auto) 5.1 Lymph # (Auto) 1.1 L [place] # (Auto) 1.3 H Eos # (Auto) 0.1 Baso # (Auto) 0.0 Total Counted 100 Immature Gran % 0.8 Nucleated RBC % 0.0 Immature Gran # 0.06 Segmented Neutrophils 73 Lymphocytes 16 L Monocytes 9 Eosinophils 1 Basophils 1.0 H Nucleated RBCs # 0.00 Platelet Estimate Normal Hypochromasia Slight Macrocytosis 1+ Sodium Potassium Chloride Carbon Dioxide Anion Gap BUN Creatinine GFR Calculation BUN/Creatinine Ratio Glucose Calculated Osmolality Calcium Magnesium Total Bilirubin AST ALT Alkaline Phosphatase Total Protein Albumin Globulin Albumin/Globulin Ratio PSA Diagnostic TSH 3rd Generation 6.260 H Urine Color Yellow Urine Appearance Clear Urine pH 6.0 Ur Specific [place] 1.010 Urine Protein 100 Urine Glucose (UA) Negative Urine Ketones Negative Urine Blood Moderate Urine Nitrate Negative Urine Bilirubin Negative Urine Urobilinogen < 2.0 H Urine Leukocytes Negative Urine RBC 26 Urine WBC 1 Ur Culture Indicated? Not indicated 01/30/17 01/30/17 05:53 05:53 WBC RBC Hgb Hct MCV MCH MCHC RDW Plt Count MPV Neut % (Auto) Lymph % (Auto) [place] % (Auto) Eos % (Auto) Baso % (Auto) Neut # (Auto) Lymph # (Auto) [place] # (Auto) Eos # (Auto) Baso # (Auto) Total Counted Immature Gran % Nucleated RBC % Immature Gran # Segmented Neutrophils Lymphocytes Monocytes Eosinophils Basophils Nucleated RBCs # Platelet Estimate Hypochromasia Macrocytosis Sodium 142 Potassium 4.3 Chloride 103 Carbon Dioxide 27 Anion Gap 16.3 H BUN 43 H Creatinine 1.80 H GFR Calculation 43 BUN/Creatinine Ratio 23.00 H Glucose 70 L Calculated Osmolality 291.1 Calcium 7.9 L Magnesium 1.9 Total Bilirubin 0.70 AST 44 H ALT 22 Alkaline Phosphatase 80 Total Protein 4.4 L Albumin 2.2 L Globulin 2.2 L Albumin/Globulin Ratio 1.0 L PSA Diagnostic 0.1 TSH 3rd Generation Urine Color Urine Appearance Urine pH Ur Specific [place] Urine Protein Urine Glucose (UA) Urine Ketones Urine Blood Urine Nitrate Urine Bilirubin Urine Urobilinogen Urine Leukocytes Urine RBC Urine WBC Ur Culture Indicated? Quality Measures - VTE Contraindication to Pharmacological VTE Prophylaxis: High Risk of Bleeding Rodrigo Grimes Wesley, MD, personally performed the services described in this documentation, ascribed by Adelaide Sotomayor RN in my presence, and it is both accurate and complete [id number] .
--- NOTE | 2017-01-30 12:46 | Physician Query Form ---
CLICK EDIT DOCUMENT TO SELECT QUERY ANSWER --> OK --> SIGN Ava Jain RN, CCDS Certified Clinical New Media Strategist W) [phone] (f) [phone] [email or web address] PROVIDERS: Make your selection(s) from the choices in EACH section by typing an "x" and enter comments in the comment section. Please use your independent medical judgment in providing your response. This request does not imply that any particular answer is desired or expected. CLINICAL INDICATORS: (Providers should not edit this section) The medical record indicates that the patient was admitted for chemotherapy, Acute CHF, BNP found to be 706# AND the patient was treated with Lasix.----" Echo done in November of this year with ejection fraction of 50-55%" Please provide further specificity regarding CHF. ACUITY: ( ) Acute ( ) Chronic ( x) Acute on Chronic ( ) Clinically unable to determine TYPE: ( ) Systolic (x ) Diastolic ( ) Combined Systolic/Diastolic ( ) Other, please specify: ( ) Clinically unable to determine ( ) The patient does NOT have CHF COMMENTS: Use of terms such as suspected, likely, or probable (associated with a specific diagnosis that is being evaluated, monitored, or treated as if it exists) are acceptable and can be restated in the discharge summary if not ruled out. MTDD
--- NOTE | 2017-01-30 12:53 | Physician Query Form ---
CLICK EDIT DOCUMENT TO SELECT QUERY ANSWER --> OK --> SIGN Ava Jain RN, CCDS Certified Clinical Quality Assurance Specialist W) [phone] (f) [phone] [email or web address] PROVIDERS: Make your selection(s) from the choices in EACH section by typing an "x" and enter comments in the comment section. Please use your independent medical judgment in providing your response. This request does not imply that any particular answer is desired or expected. CLINICAL INDICATORS: (Providers should not edit this section) The medical record indicates that the patient was admitted for chemotherapy, Acute CHF, "O2 dependent" and the patient was admitted-placed on 2-3 liters per NC. Based on the above, could you clarify the appropriate diagnosis, if significant , that supports the above abnormalities and additional evaluation, monitoring, and/or treatment rendered: ( x) patient is being treated or monitored for chronic respiratory failure ( ) patient is not being treated or monitored for chronic respiratory failure ( ) Other, please specify: ( ) Clinically unable to determine COMMENTS: Use of terms such as suspected, likely, or probable (associated with a specific diagnosis that is being evaluated, monitored, or treated as if it exists) are acceptable and can be restated in the discharge summary if not ruled out. MTDD
[2017-01-31] MEDS: ALBUTEROL/IPRATROPIUM 3 ML NEB RESP TX SCH ×4 (00:42→21:23)
[2017-01-31] MEDS: FUROSEMIDE 20 MG TABLET PO SCH ×3 (01:46→15:59)
[2017-01-31] MEDS: LEVOTHYROXINE 100 MCG TABLET PO SCH (06:17)
[2017-01-31 08:14] LABS: Calcium 7.9 MG/DL (8.5-10.1); Magnesium 1.9 MG/DL (1.8-2.4); Osmolality,Calculated 291.4 MOS/KG (273-304); Potassium 4.1 MMOL/L (3.5-5.1)
--- NOTE | 2017-01-31 08:31 | Oncology Progress Note ---
Assessment and Plan (1) Pancreatic cancer Status: Acute Assessment and plan: Continuing infusional fluorouracil chemotherapy which should complete 46 hour duration sometime tomorrow. Mediport placement today with plans to resume Xarelto and Plavix approximately 10 hours post surgery. Cautious diuresis. Current Visit: Yes Oncology Subjective PN Interval history: The patient has completed his chemotherapy and red blood cell transfusion overnight. He actually ate most of his breakfast. He reported some right lower quadrant abdominal wall tenderness on rounds yesterday morning. He states that around 4 this morning this escalated significantly and now has some degree of abdominal guarding. He has not had fever and his vitals appear to be stable though his heart rate does seem escalated slightly. He continues to demonstrate lower extremity edema right greater than left at this time and I think this is mildly improved compared to admission. His chemistry profile is acceptable this morning. Plans for discharge are on hold and CT of the abdomen is ordered to evaluate right lower quadrant tenderness Exam - Constitutional Vitals: Period Temp Pulse Resp BP Sys/Cobb Pulse Ox Last 24 Hr 96.4 F-97.9 F 85-104 16-20 125-157/60-75 88-100 Results - Labs CBC & BMP: 01/30/17 05:53 01/31/17 07:13 Quality Measures - VTE Contraindication to Pharmacological VTE Prophylaxis: High Risk of Bleeding
[2017-01-31] MEDS: FUROSEMIDE 40 MG/4 ML VIAL IV SCH (08:40)
[2017-01-31] MEDS: ISOSORBIDE DINITRATE 20 MG TABLET PO SCH ×3 (08:40→20:38)
[2017-01-31] MEDS ORDERED: fentaNYL 25 MCG/HR PATCH TRANSDERM SCH (09:00)
[2017-01-31 09:48] LABS: Basophils % 0.3 % (0.0-0.8); Eosinophils # 0.1 10*3/uL (0.0-0.87); Eosinophils % 1.6 % (0.00-10.9); Hematocrit 30.6 VOL% (42.0-52.0); Immature Granulocytes % 0.4 %; Immature Granulocytes Absolute 0.03 #; Lymphocytes # 0.8 10*3/uL (1.4-4.0); Lymphocytes % 11.1 % (21.2-54.2); Mean Corpuscular HGB Conc 33.7 GM/DL (32-36); Mean Corpuscular Hemoglobin 32 PG (27-34); Mean Corpuscular Volume 94.7 FL (87-102); Mean Platelet Volume 9.7 FL (9.6-12.0); Monocytes # 0.5 10*3/uL (0.11-0.8); Monocytes % 6.7 % (1.7-12.7); Neutrophils # 5.5 10*3/uL (1.4-7.4); Neutrophils % 79.9 % (38.7-73.9); Platelet Count 271 T/CUMM (130-400); Red Cell Distribution Width 21.6 % (9.3-17.3); White Blood Count 6.9 T/CUMM (4-12)
[2017-01-31 10:02] LABS: Hemoglobin 10.3 GM/DL (14.0-18.0); Red Blood Count 3.23 MC/CUMM (3.8-5.5)
[2017-01-31 10:17] LABS: Albumin 2.3 G/DL (3.4-5.0); Bilirubin,Total 0.4 MG/DL (0.2-1.0); Calcium 7.7 MG/DL (8.5-10.1); Total Protein 4.5 G/DL (6.4-8.3)
[2017-01-31 10:18] LABS: Osmolality,Calculated 292.4 MOS/KG (273-304); Potassium 3.9 MMOL/L (3.5-5.1)
[2017-01-31] MEDS: HYDROmorphone 2 MG/1 ML VIAL IV PRN (11:29)
--- NOTE | 2017-01-31 12:23 | CT Report ---
CT abdomen pelvis wo con Indication: Generalized abdominal pain. Pancreatic cancer. CT ABDOMEN AND PELVIS WITHOUT CONTRAST DLP: 511 mGy*cm. One or more of the following dose reduction techniques was used: Automated exposure control, adjustment of the mA and/or kV according the patient size, or use of iterative reconstruction techniques. Comparison: 12/25/2016. Technique: Axial noncontrast CT images of the abdomen and pelvis were obtained. Abdomen: Small pericardial effusion and moderate bilateral pleural effusions have developed. Heart is upper limits normal in size. Atelectasis of the lung bases noted. Generalized anasarca and body wall edema is present. Multiple metastatic lesions distributed throughout the liver are present, and unchanged from the prior exam. The largest of these subcapsular measuring 61 x 43 mm. Absent contrast, the pancreas appears somewhat indistinct and homogeneous, but the tail is difficult to see. Multiple splenic vein varicosities are present. Main portal vein is 17 mm diameter. Spleen is normal in size. Adrenal glands are within normal limits. Nonobstructing bilateral nephrolithiasis is present, largest stone 4 mm on the left. Increased stool is present in the ascending and proximal transverse colon. The colon is decompressed peeling at the splenic flexure extends to the rectum. No small bowel dilatation is shown but oral contrast is limited to the jejunum and ileum. Calcified atheromatous disease of the aorta is significant. No lymphadenopathy identified. Pelvis: Urinary bladder and rectosigmoid colon appear unremarkable. Impression: 1. New small pericardial effusion and moderate bilateral pleural effusions since 12/25/2016. Worsening diffuse anasarca. 2. Stable metastatic disease throughout the liver. 3. Constipation with significant increased stool in the ascending and proximal transverse colon. No obstruction. No transition point or obstructing lesion identified. 4. Nonobstructing bilateral nephrolithiasis. PROCEDURE INTERPRETED AT [facility] DEPARTMENT OF RADIOLOGY Final Report Signed by: Dashawn Byrnes M.D.
--- NOTE | 2017-01-31 14:43 | Cardiology Progress Note ---
I, Adelaide Sotomayor RN, am scribing for, and in the presence of, Guicho Wallace MD 14:43. Assessment and Plan (1) Congestive heart failure Status: Acute Current Visit: Yes (2) COPD (chronic obstructive pulmonary disease) Status: Chronic Current Visit: Yes (3) DVT (deep venous thrombosis) Status: Chronic Current Visit: No (4) Diabetes Status: Chronic Current Visit: Yes (5) NSTEMI (non-ST elevated myocardial infarction) Status: Chronic Current Visit: No (6) Pancreatic cancer Status: Acute Current Visit: Yes Cardiology - PN: Subj Interval history: Mr. Dougherty is seen resting in bed this morning with family at bedside. He is in no acute distress. Oxygen is in use via nasal biprong, he states he short of breath but that this is normal. He developed right upper quadrant tenderness a couple days ago and this got worse during the night. He describes it as feeling like a muscle spasm. CT of the abdomen is ordered to evaluate this. He received blood product during the night, H&H has not resulted yet. Mediport noted to left chest. Patient's counts are better posttransfusion. He has a CT scan which does demonstrate a fair amount of stool in his colon which is likely the etiology of his discomfort. He has a small pericardial effusion and there is no clinical evidence of [place] not so this will be watched. He also has a small amount of ascites and pleural effusions as well and this is likely multifactorial. Our plan will be to continue his diuresis. His weight is currently stable and he is comfortable and ambulating with continued fatigue although it is improved. I have discussed in detail the particulars of this case and I have examined the patient and reviewed the patient's chart both current and old. I was directly involved in the patient's evaluation and management and I completely agree with Adelaide Sotomayor RN regarding this patient's evaluation and treatment plan. Exam (Progress Note) - Constitutional Vitals: Period Temp Pulse Resp BP Sys/Cobb Pulse Ox Last 24 Hr 96.4 F-97.9 F 85-104 16-20 125-159/60-75 88-100 General appearance: no acute distress - Head Head exam: Absent: abrasion, hematoma - Eye Eye exam: Absent: periorbital swelling, laceration to eyelids - Neck Neck exam: Absent: tenderness - Respiratory Respiratory exam: Present: clear to auscultation bilaterally, other (Oxygen via nasal biprong). Absent: accessory muscle use, chest wall tenderness - Cardiovascular Cardiovascular exam: Present: regular rate and rhythm - GI/Abdominal GI/Abdominal exam: Present: normal bowel sounds, soft. Absent: distended, tenderness - Extremities Exam Extremities exam: Present: edema (1+ bilateral lower extremities) - Neurological Exam Neurological exam: Present: alert, oriented X3 - Psychiatric Psychiatric exam: Present: normal affect, normal mood - Skin Skin exam: Present: warm, dry Result/EKG - Labs CBC & BMP: 01/31/17 09:10 01/31/17 09:10 Lab Results: I have reviewed the past 24 hour labs Labs: Laboratory Results - last 24 hr 01/30/17 01/31/17 Unknown 07:13 Sodium 140 Potassium 4.1 Chloride 104 Carbon Dioxide 27 Anion Gap 13.1 BUN 44 H Creatinine 1.90 H GFR Calculation 40 BUN/Creatinine Ratio 23.00 H Glucose 128 H Calculated Osmolality 291.4 Calcium 7.9 L Magnesium 1.9 Blood Type A POSITIVE Antibody Screen Negative Crossmatch See Detail Quality Measures - VTE Contraindication to Pharmacological VTE Prophylaxis: High Risk of Bleeding Rodrigo Grimes Wesley, MD, personally performed the services described in this documentation, ascribed by Adelaide Sotomayor RN in my presence, and it is both accurate and complete 443 .
[2017-01-31] MEDS: CLOPIDOGREL 75 MG TABLET PO SCH (14:50)
[2017-01-31] MEDS: DOCUSATE SODIUM 100 MG CAPSULE PO SCH (14:50)
[2017-01-31] MEDS: MAGNESIUM OXIDE 400 MG TABLET PO SCH (14:51)
[2017-01-31] MEDS: PANTOPRAZOLE 40 MG TABLET PO SCH (14:52)
[2017-01-31] MEDS: CYANOCOBALAMIN 500 MCG TABLET PO SCH (14:53)
[2017-01-31] MEDS: metOLazone 2.5 MG TABLET PO SCH (14:54)
[2017-01-31] MEDS: CARVEDILOL 3.125 MG TABLET PO SCH ×2 (14:54→20:38)
[2017-01-31] MEDS: RIVAROXABAN 15 MG TABLET PO SCH (14:55)
[2017-01-31] MEDS: POTASSIUM CHLORIDE 20 MEQ PACK PO SCH (14:56)
[2017-01-31] MEDS: MEGESTROL 400 MG/10 ML UDCUP PO SCH (14:57)
--- NOTE | 2017-01-31 17:51 | General Surgery Progress Note ---
Assessment and Plan (1) Pancreatic cancer Status: Acute Assessment and plan: Impression: 1. Pancreatic cancer 2. Chemotherapy needing venous access 3. History of congestive heart failure 4. History of DVT Plan: We will go ahead and set patient up for a Mediport in the morning. 01/31/2017. Patient Mediport site looks good clean with no unusual swelling. Patient now complaining of some epigastric abdominal discomfort little bit of nausea. There is a fullness there and he has metastatic liver disease at this time. At this point a CT scan of the abdomen and pelvis was ordered and basically showed that the metastatic disease is stable at this point. Gallbladder does not look distended. At this time though he is found to be extremely constipated on the right side: And this may be contributing to his symptoms. We will initially try to get his bowels clean and see how his symptoms do once the colon has a chance to clean itself out. Current Visit: Yes Subjective Patient reports: Present: bowel movement, nausea, afebrile. Absent: no new complaints (Patient now having some complaints of discomfort in the right upper quadrant part of the abdomen. He has had a little difficulty in eating with little bit of nausea associated with it.), vomiting Exam - Constitutional Vitals: Period Temp Pulse Resp BP Sys/Cobb Pulse Ox Last 24 Hr 96.5 F-98.2 F 92-104 18-20 132-181/60-86 92-100 General appearance: mild distress - Head Head exam: Present: normal inspection - ENT ENT exam: Present: normal exam - Neck Neck exam: Present: normal inspection - Respiratory Respiratory exam: Present: clear to auscultation bilaterally, rales, rhonchi - Cardiovascular Cardiovascular exam: Present: RRR - GI/Abdominal GI/Abdominal exam: Present: hypoactive bowel sounds, tenderness (Right upper quadrant), soft. Absent: distended, guarding - Extremities Exam Extremities exam: Present: normal inspection - Back Exam Back exam: Present: normal inspection - Neurological Exam Neurological exam: Present: alert, oriented X3, CN II-XII intact - Skin Skin exam: Present: normal color, warm, dry Results - Labs CBC & BMP: 01/31/17 09:10 01/31/17 09:10 Lab Results: I have reviewed the past 24 hour labs - Diagnostic Findings Procedure: CT Abdomen and Pelvis: report reviewed by me (Severe constipation right colon) Quality Measures - VTE Contraindication to Pharmacological VTE Prophylaxis: High Risk of Bleeding
[2017-01-31] MEDS ORDERED: MAGNESIUM CITRATE 300 ML BOTTLE PO ONE (17:52)
[2017-02-01] MEDS: ALBUTEROL/IPRATROPIUM 3 ML NEB RESP TX SCH ×3 (01:08→12:41)
[2017-02-01] MEDS: LEVOTHYROXINE 100 MCG TABLET PO SCH (06:15)
[2017-02-01] MEDS ORDERED: SODIUM PHOSPHATE ENEMA 133 ML BOTTLE RECTAL PRN (09:56)
[2017-02-01] MEDS ORDERED: SODIUM PHOSPHATE ENEMA 133 ML BOTTLE RECTAL ONE (09:56)
--- NOTE | 2017-02-01 09:59 | Oncology Progress Note ---
Assessment and Plan (1) Pancreatic cancer Status: Acute Assessment and plan: Continuing infusional fluorouracil chemotherapy which should complete 46 hour duration sometime tomorrow. Mediport placement today with plans to resume Xarelto and Plavix approximately 10 hours post surgery. Cautious diuresis. Current Visit: Yes Oncology Subjective PN Interval history: Patient with metastatic pancreatic cancer admitted for chemotherapy and Mediport placement. He has received his first cycle of FOLFOX after approximately 5 months of frontline Gemzar and Abraxane. He is stable this morning though he continues to have rather significant right sided abdominal pain. There was concern yesterday for possible peritonitis and a CT scan showed bilateral renal stones nonobstructing as well as a significant amount of constipation. He is tolerating a diet at this time with normal bowel sounds on examination. He has no evidence of obstruction and no nausea or vomiting. I have changed his diuretics to all oral at this time. We are ordering fleets enema and if he has significant relief he can go home late today or tomorrow. Exam - Constitutional Vitals: Period Temp Pulse Resp BP Sys/Cobb Pulse Ox Last 24 Hr 96.5 F-98.2 F 19-105 16-20 137-181/66-86 90-100 Results - Labs CBC & BMP: 01/31/17 09:10 01/31/17 09:10 Quality Measures - VTE Contraindication to Pharmacological VTE Prophylaxis: High Risk of Bleeding
[2017-02-01] MEDS ORDERED: FUROSEMIDE 80 MG TABLET PO SCH (10:00)
[2017-02-01] MEDS: FUROSEMIDE 20 MG TABLET PO SCH (10:13)
[2017-02-01] MEDS: FUROSEMIDE 40 MG/4 ML VIAL IV SCH (10:13)
[2017-02-01] MEDS: CYANOCOBALAMIN 500 MCG TABLET PO SCH (10:40)
[2017-02-01] MEDS: CLOPIDOGREL 75 MG TABLET PO SCH (10:40)
[2017-02-01] MEDS: MAGNESIUM OXIDE 400 MG TABLET PO SCH (10:41)
[2017-02-01] MEDS: metOLazone 2.5 MG TABLET PO SCH (10:41)
[2017-02-01] MEDS: ISOSORBIDE DINITRATE 20 MG TABLET PO SCH (10:41)
[2017-02-01] MEDS: DOCUSATE SODIUM 100 MG CAPSULE PO SCH (10:41)
[2017-02-01] MEDS: RIVAROXABAN 15 MG TABLET PO SCH (10:41)
[2017-02-01] MEDS: MEGESTROL 400 MG/10 ML UDCUP PO SCH (10:42)
[2017-02-01] MEDS: CARVEDILOL 3.125 MG TABLET PO SCH (10:42)
[2017-02-01] MEDS: POTASSIUM CHLORIDE 20 MEQ PACK PO SCH (10:42)
[2017-02-01] MEDS: PANTOPRAZOLE 40 MG TABLET PO SCH (10:42)
[2017-02-01] MEDS: HYDROmorphone 2 MG/1 ML VIAL IV PRN (11:07)
--- NOTE | 2017-02-01 11:44 | Cardiology Progress Note ---
Светлана Grimes April RN, am scribing for, and in the presence of, Guicho Wallace MD 11:44. Assessment and Plan (1) Congestive heart failure Status: Acute Current Visit: Yes (2) COPD (chronic obstructive pulmonary disease) Status: Chronic Current Visit: Yes (3) DVT (deep venous thrombosis) Status: Chronic Current Visit: No (4) Diabetes Status: Chronic Current Visit: Yes (5) NSTEMI (non-ST elevated myocardial infarction) Status: Chronic Current Visit: No (6) Pancreatic cancer Status: Acute Current Visit: Yes Cardiology - PN: Subj Interval history: Mr. Tate is seen resting in bed in no acute distress. He denies chest pain, palpitations, dizziness. Oxygen is in use via nasal biprong, and he states that he is short of breath but this is his usual state. He continues to complain of right-sided abdominal pain and is eating prunes while I am in the room. He tells me that when he gets up to go the bathroom the pain spasms and is almost unbearable. His H&H did improve after his blood, yesterday it was 10.3 and 30.6. The patient continues cardiac stable. Is a little tachycardic this morning I think after struggling with trying to get up to the bathroom. He is on p.o. Lasix currently and I think he is doing reasonably well from a cardiac standpoint. His edema appears to be improved. He has abdominal pain which is causing some of the tachycardia as well and the plan is for enemas to decompress his colon which likely is causing his pain. Exam (Progress Note) - Constitutional Vitals: Period Temp Pulse Resp BP Sys/Cobb Pulse Ox Last 24 Hr 96.5 F-98.2 F 19-105 16-20 137-181/66-86 90-100 General appearance: no acute distress - Head Head exam: Absent: abrasion, hematoma - Eye Eye exam: Absent: periorbital swelling, laceration to eyelids - Neck Neck exam: Absent: tenderness - Respiratory Respiratory exam: Present: clear to auscultation bilaterally, decreased breath sounds, other (Oxygen via nasal biprong). Absent: accessory muscle use, chest wall tenderness - Cardiovascular Cardiovascular exam: Present: regular rate and rhythm, tachycardia - GI/Abdominal GI/Abdominal exam: Present: normal bowel sounds, distended, tenderness (Right lower quadrant), soft - Extremities Exam Extremities exam: Present: edema (1+ bilateral lower extremities) - Neurological Exam Neurological exam: Present: alert, oriented X3 - Psychiatric Psychiatric exam: Present: normal affect, normal mood - Skin Skin exam: Present: warm, dry Result/EKG - Labs CBC & BMP: 01/31/17 09:10 01/31/17 09:10 Lab Results: I have reviewed the past 24 hour labs Labs: Laboratory Results - last 24 hr 01/30/17 01/31/17 01/31/17 Unknown 09:10 09:10 WBC 6.9 RBC 3.23 L D Hgb 10.3 L D Hct 30.6 L MCV 94.7 MCH 32 MCHC 33.7 RDW 21.6 H Plt Count 271 MPV 9.7 Neut % (Auto) 79.9 H Lymph % (Auto) 11.1 L [place] % (Auto) 6.7 Eos % (Auto) 1.6 Baso % (Auto) 0.3 Neut # (Auto) 5.5 Lymph # (Auto) 0.8 L [place] # (Auto) 0.5 Eos # (Auto) 0.1 Baso # (Auto) 0.0 Immature Gran % 0.4 Nucleated RBC % 0.0 Immature Gran # 0.03 Nucleated RBCs # 0.00 Sodium 140 Potassium 3.9 Chloride 103 Carbon Dioxide 28 Anion Gap 12.9 BUN 44 H Creatinine 1.90 H GFR Calculation 40 BUN/Creatinine Ratio 23.00 H Glucose 159 H Calculated Osmolality 292.4 Calcium 7.7 L Total Bilirubin 0.40 AST 44 H ALT 20 Alkaline Phosphatase 83 Total Protein 4.5 L Albumin 2.3 L Globulin 2.2 L Albumin/Globulin Ratio 1.0 L Blood Type A POSITIVE Antibody Screen Negative Crossmatch See Detail Quality Measures - VTE Contraindication to Pharmacological VTE Prophylaxis: High Risk of Bleeding Rodrigo Grimes Wesley, MD, personally performed the services described in this documentation, ascribed by Adelaide Sotomayor RN in my presence, and it is both accurate and complete [id number] .
[2017-02-01] MEDS ORDERED: DESITIN 4OZ/NYSTATIN 15 GRAM MIXTURE PASTE TOP SCH (12:00)
--- NOTE | 2017-02-01 13:15 | General Surgery Progress Note ---
Assessment and Plan - Time spent with patient Time spent with patient: Less than 30 minutes (1) Pancreatic cancer Status: Acute Assessment and plan: Impression: 1. Pancreatic cancer 2. Chemotherapy needing venous access 3. History of congestive heart failure 4. History of DVT Plan: We will go ahead and set patient up for a Mediport in the morning. 01/31/2017. Patient Mediport site looks good clean with no unusual swelling. Patient now complaining of some epigastric abdominal discomfort little bit of nausea. There is a fullness there and he has metastatic liver disease at this time. At this point a CT scan of the abdomen and pelvis was ordered and basically showed that the metastatic disease is stable at this point. Gallbladder does not look distended. At this time though he is found to be extremely constipated on the right side: And this may be contributing to his symptoms. We will initially try to get his bowels clean and see how his symptoms do once the colon has a chance to clean itself out. 02/01/2017 Patient is better he did have a good bowel movement and discomfort on the right side of the abdomen has improved. His Mediport looks good and is functioning well no sign of any bruising or swelling. He looks good and progressing nicely and I am perfect comfortable him going home at any time. Will probably need to check him again in about 2-3 weeks Current Visit: Yes Subjective Patient reports: Present: feels better, pain is less, tolerating a regular diet , bowel movement, afebrile Exam - Constitutional Vitals: Period Temp Pulse Resp BP Sys/Cobb Pulse Ox Last 24 Hr 96.5 F-98 F 19-105 16-20 137-156/66-85 90-100 General appearance: mild distress - Head Head exam: Present: normal inspection - ENT ENT exam: Present: normal exam Mouth exam: Present: normal external inspection - Neck Neck exam: Present: normal inspection - Respiratory Respiratory exam: Present: rales, other (Mediport site is healing nicely with no signs of swelling or bruising) - Cardiovascular Cardiovascular exam: Present: RRR - GI/Abdominal GI/Abdominal exam: Present: hypoactive bowel sounds, soft. Absent: distended, tenderness - Extremities Exam Extremities exam: Present: normal inspection - Back Exam Back exam: Present: normal inspection - Neurological Exam Neurological exam: Present: alert, oriented X3, CN II-XII intact - Skin Skin exam: Present: normal color, warm, dry Results - Labs CBC & BMP: 01/31/17 09:10 01/31/17 09:10 Lab Results: I have reviewed the past 24 hour labs Quality Measures - VTE Contraindication to Pharmacological VTE Prophylaxis: High Risk of Bleeding Specialty Discharge - Follow Up or Referrals Follow up with: Pop Joyner MD [Physician] - 2 Weeks
[2017-02-01 15:17] VITALS: BP 150/85
[2017-02-01] MEDS ORDERED: FUROSEMIDE 40 MG TABLET PO SCH (16:00)
[2017-02-01] MEDS ORDERED: HEPARIN LOCK FLUSH 500 UNIT/5 ML SYRINGE IV ONE (16:06)
--- NOTE | 2017-03-08 07:17 | Discharge Summary ---
DATE OF ADMISSION: 01/28/2017 DATE OF DISCHARGE: 02/01/2017 DIAGNOSES: INCLUDE: 1. METASTATIC PANCREATIC CANCER. 2. CHRONIC OBSTRUCTIVE PULMONARY DISEASE. 3. CONGESTIVE HEART FAILURE. 4. NEPHROLITHIASIS. 5. ABDOMINAL PAIN. 6. CHEMOTHERAPY-RELATED ANEMIA. 7. SEVERE PROTEIN CALORIE MALNUTRITION. 8. CHRONIC KIDNEY DISEASE. CONSULTS: Include General Surgery and Cardiology, Dr. Wallace. PROCEDURES: Include MediPort placement. HOSPITAL COURSE: This patient is admitted for FOLFOX chemotherapy as second line treatment of metas tatic pancreatic cancer. The patient was continued on diuretics while hospitalized. His Plavix was discontinued appropriately prior to his MediPort procedure and was hence restarted. He tolerated t he chemotherapy well. He did report abdominal pain with right lower quadrant tenderness noted on ex amination. A CT scan showed no findings of peritonitis and we treated his constipation and he got b darci and was discharged home. Appropriate followup was given.
== END 2017-02-01 17:55 | disposition home or self-care (01) | DRG 846 ==
LOC: N.4E 13:43
PROVIDERS: ADMIT Specialist; ATTEND Specialist